=== PATIENT | female | born 1945 | race Caucasian/White ===

== ENCOUNTER 2024-02-24 14:23 | Inpatient (IN) | payer OTHER ==
[~2024-02-24 14:23] MED LIST: Iopamidol-370 76% 500 ML MDV (1 ML CHARGE) ONE
[2024-02-24] MEDS ORDERED: Cefepime 2 GM VIAL ONE (15:06)
[2024-02-24] MEDS ORDERED: Acetaminophen 650 MG Suppository ONE (15:06)
[2024-02-24] MEDS ORDERED: Sodium Chloride 0.9% 100 ML ONE (15:06)
[2024-02-24 15:13] LABS: INR-International Normal Ratio 1.8; Prothrombin Time 20.6 sec (12.0-14.7)
[2024-02-24 15:14] LABS: PTT 51.3 sec (22.9-36.1)
[2024-02-24 15:23] LABS: ALT (SGPT) 16 U/L (8-55); AST (SGOT) 59 U/L (5-34); Albumin 2.5 g/dL (3.4-4.8); Alkaline Phosphatase 67 U/L (40-110); Anion Gap 14 mmol/L (10-20); BUN (Urea Nitrogen) 13 mg/dL (9.8-20.1); Bilirubin, Total 3.4 mg/dL (0.2-1.2); Calc. Creatinine Clearance 0 mL/min (70-130); Calcium 8.1 mg/dL (7.8-10.44); Carbon Dioxide 20 mmol/L (23-31); Chloride 108 mmol/L (98-107); Estimated GFR 88; Globulin 5.1 g/dL (2.4-3.5); Glucose 141 mg/dL (83-110); Lipase 14 U/L (8-78); Magnesium 1.9 mg/dL (1.6-2.6); Potassium 3.7 mmol/L (3.5-5.1); Protein, Total 7.6 g/dL (5.8-8.1); Sodium 138 mmol/L (136-145)
[2024-02-24 15:30] LABS: Troponin I 0.025 ng/mL (< 0.028)
[2024-02-24 15:35] LABS: #Basophils Less than 0.03 10x3/uL (0.0-0.2); #Eosinophils Less than 0.03 10x3/uL (0.0-0.7); %Basophils 0.4 % (0.0-1.0); %Eosinophils 0.2 % (0.0-10.0); %Lymphocytes 44.9 % (21.0-51.0); %Monocytes 14.8 % (0.0-10.0); %Neutrophils 39.3 % (42.0-75.0); Hematocrit 29.1 % (36.0-47.0); Hemoglobin 10.4 g/dL (12.0-16.0); Mean Corpuscular HGB CONC 35.7 g/dL (32.0-36.0); Mean Corpuscular Hemoglobin 34.9 pg (27.0-31.0); Mean Corpuscular Volume 97.7 fL (78.0-98.0); Mean Platelet Volume 10.7 fL (7.4-10.4); Platelet Count 89 10x3/uL (130-400); RBC Distribution Width 16.7 % (11.5-14.5); Red Blood Cell (RBC) Count 2.98 mill/uL (4.20-5.40)
[2024-02-24 15:39] LABS: Anisocytosis SLIGHT = 6-15 cells (100X) (0-5/hpf); Macrocytosis SLIGHT = 6-15 cells (100X) (0-5/hpf)
[2024-02-24 15:41] LABS: Platelet Adequacy Comment Platelets Decreased
[2024-02-24] MEDS ORDERED: Ketorolac Tromethamine 30 MG (1 mL) VIAL ONE (16:33)
[2024-02-24 16:34] LABS: Bacteria/HPF None Seen HPF (None Seen); Bilirubin Negative (Negative); Blood, Urine Negative (Negative); CAUTI Indications for Culture Dysuria,urgency,freq; Clarity Clear (Clear); Glucose, Urine (Dipstick) Normal (Negative); Ketone, Urine Trace mg/dL (Negative); Leukocyte 75 Leu/uL (Negative); Nitrite Negative (Negative); Protein, Urine (Dipstick) 70 mg/dL (Neg-Trace); RBC/HPF None Seen HPF (0-3); Specific Gravity, Urine 1.028 (1.002-1.036); Squamous Epithelial 0-3 HPF (0-3); pH, Urine 6.5 (5.0-9.0)
[2024-02-24 16:41] LABS: Actual Bicarbonate (HCO3v) 21.6 mEq/L (22-28); Base Excess -2.6 mEq/L (-2.0 to +3.0); Calcium, Ionized (venous) 1.04 mmol/L (1.16-1.32); Chloride (VBG) 109 mmol/L (98-106); Hematocrit-VBG 29 % (36.0-47.0); Hemoglobin (Hb) 9.7 g/dL (11.7-16.1); Potassium (VBG) 3.37 mmol/L (3.70-5.30); Sodium 137 mmol/L (133-146); pH (venous) 7.408 (7.32-7.43)
[2024-02-24 16:45] LABS: Urine Culture Reflex Yes Yes
[2024-02-24] MEDS ORDERED: Acetaminophen 325 MG TAB PO PRN (17:21)
[2024-02-24] MEDS ORDERED: Acetaminophen 650 MG Suppository PR PRN (17:21)
[2024-02-24] MEDS: Vancomycin (BATCH) 1.75 GM in Premix 1 BAG IVPB ONE (18:55)
[2024-02-24 19:05] VITALS: BMI 26.0
[2024-02-24] MEDS: Famotidine/PF 20 mg/2ml Vial SLOW IVP SCH (20:54)
[2024-02-24] MEDS: Vancomycin HCl 750 MG in Sodium Chloride 0.9% 250 ML 250 ML IVPB SCH (20:54)
[2024-02-24] MEDS ORDERED: Vancomycin 1 GM in Sodium Chloride 0.9% 250 ML 250 ML IVPB SCH (21:00)
[2024-02-25] MEDS: Cefepime 1 GM in Sodium Chloride 0.9% 100 ML IVPB SCH (03:25)
[2024-02-25] MEDS: Magnesium 2 GM/50 ML(in water) 2 GM in Premix 1 BAG IVPB SCH (05:37)
[2024-02-25 06:30] LABS: Vancomycin, Random 23.9 ug/mL (See Comment)
[2024-02-25 06:32] LABS: #Basophils Less than 0.03 10x3/uL (0.0-0.2); #Eosinophils Less than 0.03 10x3/uL (0.0-0.7); %Basophils 0.5 % (0.0-1.0); %Eosinophils 0.2 % (0.0-10.0); %Lymphocytes 50.4 % (21.0-51.0); %Monocytes 12.9 % (0.0-10.0); %Neutrophils 35.8 % (42.0-75.0); Hematocrit 29.8 % (36.0-47.0); Hemoglobin 10.3 g/dL (12.0-16.0); Mean Corpuscular HGB CONC 34.6 g/dL (32.0-36.0); Mean Corpuscular Hemoglobin 35.3 pg (27.0-31.0); Mean Corpuscular Volume 102.1 fL (78.0-98.0); Mean Platelet Volume 11.9 fL (7.4-10.4); Platelet Count 80 10x3/uL (130-400); RBC Distribution Width 17.2 % (11.5-14.5); Red Blood Cell (RBC) Count 2.92 mill/uL (4.20-5.40)
[2024-02-25 06:33] LABS: ALT (SGPT) 14 U/L (8-55); AST (SGOT) 51 U/L (5-34); Albumin 2.2 g/dL (3.4-4.8); Alkaline Phosphatase 57 U/L (40-110); Anion Gap 9 mmol/L (10-20); BUN (Urea Nitrogen) 18 mg/dL (9.8-20.1); Calc. Creatinine Clearance 74 mL/min (70-130); Calcium 7.8 mg/dL (7.8-10.44); Carbon Dioxide 18 mmol/L (23-31); Chloride 113 mmol/L (98-107); Estimated GFR 88; Globulin 5.1 g/dL (2.4-3.5); Glucose 123 mg/dL (83-110); Potassium 3.4 mmol/L (3.5-5.1); Protein, Total 7.3 g/dL (5.8-8.1); Sodium 137 mmol/L (136-145)
[2024-02-25] MEDS: Enoxaparin 40 MG (0.4 mL) SYRINGE SC SCH (09:06)
[2024-02-25] MEDS: Furosemide 40 MG (4 mL) VIAL SLOW IVP SCH (09:06)
[2024-02-25] MEDS: FLU (Fluad Triv) TS24-25 (65UP)/MF59C/PF 45 MCG/0.5 ML Syringe IM ONE (09:07)
[2024-02-25] MEDS ORDERED: Polyethylene Glycol 3350 17 GM Packet PO PRN (12:42)
[2024-02-25] MEDS ORDERED: Fluticasone Propionate Nasal Spray 16 gm Bottle NASAL PRN ×2 (12:42→12:51)
[2024-02-25] MEDS ORDERED: Ipratropium/Albuterol 3 ML NEB NEB PRN ×2 (12:42→12:52)
[2024-02-25] MEDS ORDERED: Non-Formulary Item 1 EACH (Oxycodone Hcl/Acetaminophen [Oxycodone-Acetaminophen 10-325] 1 PO SCH (13:00)
[2024-02-25] MEDS: oxyCODONE/Acetaminophen 5 mg/325 mg Tablet PO SCH (13:30)
[2024-02-25] MEDS: Pregabalin 50 MG CAP PO SCH (14:58)
[2024-02-25] MEDS ORDERED: Non-Formulary Item 1 EACH (Pregabalin [Pregabalin] 100 MG Capsule) PO SCH (15:00)
[2024-02-25] MEDS: Lactulose 20 GM (30 mL) UDCUP PO SCH (18:55)
[2024-02-25] MEDS: Cyclobenzaprine 10 MG TAB PO SCH (20:05)
[2024-02-25] MEDS ORDERED: LACTULOSE 10 GM/15 ML PO SCH (21:00)
[2024-02-26 07:48] LABS: ALT (SGPT) 10 U/L (8-55); AST (SGOT) 39 U/L (5-34); Albumin 1.9 g/dL (3.4-4.8); Alkaline Phosphatase 44 U/L (40-110); Anion Gap 7 mmol/L (10-20); BUN (Urea Nitrogen) 19 mg/dL (9.8-20.1); Bilirubin, Total 2.1 mg/dL (0.2-1.2); Calc. Creatinine Clearance 81 mL/min (70-130); Calcium 7.7 mg/dL (7.8-10.44); Carbon Dioxide 22 mmol/L (23-31); Chloride 112 mmol/L (98-107); Estimated GFR 90; Globulin 4.1 g/dL (2.4-3.5); Glucose 87 mg/dL (83-110); Potassium 3.1 mmol/L (3.5-5.1); Sodium 138 mmol/L (136-145)
[2024-02-26 07:54] LABS: Hematocrit 23.8 % (36.0-47.0); Hemoglobin 8.4 g/dL (12.0-16.0); Mean Corpuscular HGB CONC 35.3 g/dL (32.0-36.0); Mean Corpuscular Hemoglobin 35.4 pg (27.0-31.0); Mean Corpuscular Volume 100.4 fL (78.0-98.0); Mean Platelet Volume 10.8 fL (7.4-10.4); Platelet Count 73 10x3/uL (130-400); RBC Distribution Width 17.2 % (11.5-14.5); Red Blood Cell (RBC) Count 2.37 mill/uL (4.20-5.40)
[2024-02-26] MEDS: Escitalopram Oxalate 10 mg Tablet PO SCH (08:48)
[2024-02-26] MEDS ORDERED: Electrolyte Replacement Protocol 1 EACH FS SCH (11:15)
[2024-02-26 11:21] LABS: Burr Cells SLIGHT = 2-5 cells HPF (0-1); Eosinophils 4 % (0-10); Large Platelets 10.4 % (0-5); Lymphocytes 20 % (21-51); Monocytes 10 % (0-10); Neutrophil 62 % (42-75); Ovalocytes SLIGHT = 2-5 cells HPF (0-1); Platelet Adequacy Comment Platelets Decreased; Polychromasia SLIGHT = 2-3 cells HPF (0-2); Reflex for Review?? YES; Smudge Cells 122.6 %; Target Cells SLIGHT = 2-5 cells HPF (0-1)
[2024-02-26] MEDS ORDERED: Electrolyte Replacement Protocol FS PRN (11:30)
[2024-02-26] MEDS: Potassium Chloride 20 MEQ TAB PO SCH (12:49)
[2024-02-26] MEDS: Doxycycline 100 MG in Sodium Chloride 0.9% 100 ML IVPB SCH (20:04)
[2024-02-27 05:49] LABS: Hematocrit 24.6 % (36.0-47.0); Hemoglobin 8.6 g/dL (12.0-16.0); Mean Corpuscular Hemoglobin 35.4 pg (27.0-31.0); Mean Corpuscular Volume 101.2 fL (78.0-98.0); Mean Platelet Volume 9.8 fL (7.4-10.4); Platelet Count 87 10x3/uL (130-400); RBC Distribution Width 17.1 % (11.5-14.5); Red Blood Cell (RBC) Count 2.43 mill/uL (4.20-5.40)
[2024-02-27 06:30] LABS: Anisocytosis SLIGHT = 6-15 cells HPF (0-5); Band 1 % (5-11); Eosinophils 6 % (0-10); Large Platelets 18.1 % (0-5); Lymphocytes 46 % (21-51); Macrocytosis SLIGHT = 6-15 cells HPF (0-5); Monocytes 11 % (0-10); Neutrophil 33 % (42-75); Platelet Adequacy Comment Platelets Decreased; Polychromasia SLIGHT = 2-3 cells HPF (0-2); Smudge Cells 173.5 %
[2024-02-27 06:37] LABS: ALT (SGPT) 11 U/L (8-55); AST (SGOT) 39 U/L (5-34); Albumin 1.9 g/dL (3.4-4.8); Alkaline Phosphatase 43 U/L (40-110); Anion Gap 8 mmol/L (10-20); BUN (Urea Nitrogen) 21 mg/dL (9.8-20.1); Bilirubin, Total 1.8 mg/dL (0.2-1.2); Calc. Creatinine Clearance 80 mL/min (70-130); Carbon Dioxide 22 mmol/L (23-31); Chloride 110 mmol/L (98-107); Estimated GFR 90; Globulin 4.3 g/dL (2.4-3.5); Glucose 85 mg/dL (83-110); Potassium 3.3 mmol/L (3.5-5.1); Protein, Total 6.2 g/dL (5.8-8.1); Sodium 137 mmol/L (136-145)
[2024-02-27] MEDS: Potassium Bicarbonate/Cit Ac 20 MEQ TAB PO SCH (09:37)
[2024-02-27 12:17] LABS: Metamyelocyte 2 % (0-0)
[2024-02-27 14:47] VITALS: BP 117/64; TEMP 98.2
== END 2024-02-27 15:50 | DRG 871 ==
LOC: ERS 14:23 → T4-B 17:25 → OBSVTOIN 17:25
PROVIDERS: ADMIT Internal Medicine; ATTEND Internal Medicine
DX: A41.9 Sepsis, unspecified organism (principal); J96.01 Acute respiratory failure with hypoxia; N39.0 Urinary tract infection, site not specified; M06.9 Rheumatoid arthritis, unspecified; I11.0 Hypertensive heart disease with heart failure; E78.5 Hyperlipidemia, unspecified; F32.A Depression, unspecified; Z66 Do not resuscitate; Z88.0 Allergy status to penicillin; Z88.8 Allergy status to other drugs, medicaments and biological substances; F41.9 Anxiety disorder, unspecified; K21.9 Gastro-esophageal reflux disease without esophagitis; Z98.890 Other specified postprocedural states; Z79.899 Other long term (current) drug therapy; D64.9 Anemia, unspecified
CPT/HCPCS: 36415; 70450; 71045; 71275; 80053; 80202; 81001; 82805; 83605; 83690; 83735; 83880; 84145; 84484; 85025; 85060; 85610; 85730; 87040; 87086; 87428; 93005; 96361; 96365; 96367; 96375; J0692; J1650; J1885; J1940; J3370; J3475; J3490; J7050

== ENCOUNTER 2024-02-27 17:31 | Inpatient (IN) | payer OTHER ==
[2024-02-27 19:10] LABS: Hematocrit 28.1 % (36.0-47.0); Hemoglobin 9.7 g/dL (12.0-16.0); Mean Corpuscular HGB CONC 34.5 g/dL (32.0-36.0); Mean Corpuscular Hemoglobin 34.9 pg (27.0-31.0); Mean Corpuscular Volume 101.1 fL (78.0-98.0); Mean Platelet Volume 9.8 fL (7.4-10.4); Platelet Count 105 10x3/uL (130-400); RBC Distribution Width 17.2 % (11.5-14.5); Red Blood Cell (RBC) Count 2.78 mill/uL (4.20-5.40)
[2024-02-27 19:20] LABS: ALT (SGPT) 13 U/L (8-55); AST (SGOT) 44 U/L (5-34); Albumin 2.2 g/dL (3.4-4.8); Alkaline Phosphatase 56 U/L (40-110); Anion Gap 11 mmol/L (10-20); BUN (Urea Nitrogen) 16 mg/dL (9.8-20.1); Bilirubin, Total 1.8 mg/dL (0.2-1.2); Calc. Creatinine Clearance 0 mL/min (70-130); Calcium 8.3 mg/dL (7.8-10.44); Carbon Dioxide 24 mmol/L (23-31); Chloride 105 mmol/L (98-107); Estimated GFR 88; Glucose 109 mg/dL (83-110); Potassium 3.4 mmol/L (3.5-5.1); Protein, Total 7.2 g/dL (5.8-8.1); Sodium 137 mmol/L (136-145)
[2024-02-27] MEDS ORDERED: Ondansetron PF 4 MG/2 ML Vial ONE (19:22)
[2024-02-27] MEDS ORDERED: Morphine 4 MG/ML VIAL ONE (19:22)
[2024-02-27 19:30] LABS: Anisocytosis MODERATE=16-30 cells HPF (0-5); Band 1 % (5-11); Eosinophils 2 % (0-10); Hypochromia SLIGHT = 6-15 cells HPF (0-5); Large Platelets 8.1 % (0-5); Lymphocytes 38 % (21-51); Macrocytosis MARKED = >30 cells HPF (0-5); Monocytes 10 % (0-10); Neutrophil 48 % (42-75); Platelet Adequacy Comment Platelets Decreased; Polychromasia SLIGHT = 2-3 cells HPF (0-2); RBC Morphology Within Normal Limits; Smudge Cells 47.5 %
[2024-02-27] MEDS ORDERED: Dextrose 50% Abboject 50 ML SYRINGE SLOW IVP PRN (20:24)
[2024-02-27] MEDS ORDERED: Dextrose 5% in Water 1,000 ML IV PRN (20:24)
[2024-02-27] MEDS ORDERED: Glucagon 1 MG/ML KIT IM PRN (20:24)
[2024-02-27] MEDS ORDERED: Ondansetron PF 4 MG/2 ML Vial IVP PRN (20:24)
[2024-02-27 23:15] VITALS: BMI 29.5
[2024-02-28] MEDS: Morphine 2 MG/ML VIAL SLOW IVP PRN (01:34)
[2024-02-28 06:16] LABS: #Basophils Less than 0.03 10x3/uL (0.0-0.2); %Basophils 0.4 % (0.0-1.0); %Eosinophils 2.3 % (0.0-10.0); %Lymphocytes 49.9 % (21.0-51.0); %Monocytes 11.5 % (0.0-10.0); %Neutrophils 35.7 % (42.0-75.0); Hematocrit 27.1 % (36.0-47.0); Hemoglobin 9.3 g/dL (12.0-16.0); Mean Corpuscular HGB CONC 34.3 g/dL (32.0-36.0); Mean Corpuscular Hemoglobin 34.8 pg (27.0-31.0); Mean Corpuscular Volume 101.5 fL (78.0-98.0); Mean Platelet Volume 11.2 fL (7.4-10.4); Platelet Count 81 10x3/uL (130-400); Red Blood Cell (RBC) Count 2.67 mill/uL (4.20-5.40)
[2024-02-28 06:20] LABS: Anion Gap 11 mmol/L (10-20); BUN (Urea Nitrogen) 16 mg/dL (9.8-20.1); Calc. Creatinine Clearance 81 mL/min (70-130); Calcium 8.1 mg/dL (7.8-10.44); Carbon Dioxide 23 mmol/L (23-31); Chloride 108 mmol/L (98-107); Estimated GFR 91; Glucose 112 mg/dL (83-110); Potassium 4.2 mmol/L (3.5-5.1); Sodium 138 mmol/L (136-145)
[2024-02-28] MEDS: Potassium Chloride 10 MEQ in Premix 1 BAG IVPB SCH (06:55)
[2024-02-28] MEDS ORDERED: Clindamycin/D5W 900 MG in Premix 1 BAG IVPB SCH (08:30)
[2024-02-28] MEDS ORDERED: PROPOFOL 20 ML ONE (10:53)
[2024-02-28] MEDS ORDERED: Clindamycin/D5W 900 mg/50 ml Premix Bag ONE (10:54)
[2024-02-28] MEDS ORDERED: Lidocaine 1% PF 5 ML VIAL ONE (10:54)
[2024-02-28] MEDS ORDERED: Rocuronium Bromide 10 MG/ML (10ML VIAL) ONE (10:54)
[2024-02-28] MEDS ORDERED: Ondansetron PF 4 MG/2 ML Vial ONE (10:54)
[2024-02-28] MEDS ORDERED: SUGAMMADEX SODIUM 200 MG/2 ML VIAL ONE (12:01)
[2024-02-28] MEDS ORDERED: Promethazine HCl 25 MG/ML VIAL IM PRN (12:32)
[2024-02-28] MEDS ORDERED: Dexamethasone 4 mg/ml Vial ONE (12:36)
[2024-02-28] MEDS ORDERED: fentaNYL 50 mcg/mL 1 mL Vial ONE (12:40)
[2024-02-28] MEDS: Dexamethasone 4 MG in Sodium Chloride 0.9% 50 ML IVPB SCH ×2 (14:23→15:00)
[2024-02-28] MEDS: traMADol HCl 50 MG TAB PO PRN (16:48)
[2024-02-28] MEDS: HYDROcodone/Acetaminophen 5/325 mg Tablet PO PRN (18:20)
[2024-02-28] MEDS: Clindamycin/D5W 900 MG in Premix 1 BAG IVPB SCH (21:12)
[2024-02-29 10:13] LABS: ALT (SGPT) 11 U/L (8-55); AST (SGOT) 31 U/L (5-34); Albumin 2.2 g/dL (3.4-4.8); Alkaline Phosphatase 47 U/L (40-110); Anion Gap 14 mmol/L (10-20); BUN (Urea Nitrogen) 32 mg/dL (9.8-20.1); Bilirubin, Total 2.6 mg/dL (0.2-1.2); Calc. Creatinine Clearance 72 mL/min (70-130); Calcium 8.2 mg/dL (7.8-10.44); Carbon Dioxide 19 mmol/L (23-31); Chloride 109 mmol/L (98-107); Estimated GFR 88; Globulin 4.7 g/dL (2.4-3.5); Glucose 156 mg/dL (83-110); Potassium 4.7 mmol/L (3.5-5.1); Protein, Total 6.9 g/dL (5.8-8.1); Sodium 137 mmol/L (136-145)
[2024-02-29 10:14] LABS: #Basophils Less than 0.03 10x3/uL (0.0-0.2); #Eosinophils Less than 0.03 10x3/uL (0.0-0.7); %Basophils 0.1 % (0.0-1.0); %Eosinophils 1.4 % (0.0-10.0); %Lymphocytes 37.5 % (21.0-51.0); %Monocytes 10.4 % (0.0-10.0); %Neutrophils 51.6 % (42.0-75.0); Hematocrit 21.8 % (36.0-47.0); Hemoglobin 7.5 g/dL (12.0-16.0); Mean Corpuscular HGB CONC 34.2 g/dL (32.0-36.0); Mean Corpuscular Hemoglobin 35.4 pg (27.0-31.0); Mean Corpuscular Volume 103.3 fL (78.0-98.0); Mean Platelet Volume 11.4 fL (7.4-10.4); Platelet Count 124 10x3/uL (130-400); RBC Distribution Width 17.2 % (11.5-14.5); Red Blood Cell (RBC) Count 2.12 mill/uL (4.20-5.40)
[2024-02-29] MEDS ORDERED: Enoxaparin 40 MG (0.4 mL) SYRINGE SC SCH (21:00)
[2024-02-29] MEDS: Enoxaparin 30 MG (0.3 mL) SYRINGE SC SCH (21:05)
[2024-03-01 06:04] LABS: Hematocrit 18.3 % (36.0-47.0); Hemoglobin 6.3 g/dL (12.0-16.0); Mean Corpuscular HGB CONC 34.4 g/dL (32.0-36.0); Mean Corpuscular Hemoglobin 34.6 pg (27.0-31.0); Mean Corpuscular Volume 100.5 fL (78.0-98.0); Mean Platelet Volume 11.4 fL (7.4-10.4); Platelet Count 162 10x3/uL (130-400); RBC Distribution Width 17.7 % (11.5-14.5); Red Blood Cell (RBC) Count 1.82 mill/uL (4.20-5.40)
[2024-03-01 06:41] LABS: Anisocytosis MODERATE=16-30 cells HPF (0-5); Band 7 % (5-11); Hypochromia SLIGHT = 6-15 cells HPF (0-5); Lymphocytes 9 % (21-51); Macrocytosis SLIGHT = 6-15 cells HPF (0-5); Monocytes 3 % (0-10); Neutrophil 81 % (42-75); Platelet Adequacy Comment Platelets Normal; Polychromasia SLIGHT = 2-3 cells HPF (0-2); Smudge Cells 47.5 %
[2024-03-01 08:21] LABS: ALT (SGPT) 12 U/L (8-55); AST (SGOT) 41 U/L (5-34); Albumin 2.2 g/dL (3.4-4.8); Alkaline Phosphatase 54 U/L (40-110); Anion Gap 13 mmol/L (10-20); BUN (Urea Nitrogen) 39 mg/dL (9.8-20.1); Bilirubin, Total 2.4 mg/dL (0.2-1.2); Calc. Creatinine Clearance 62 mL/min (70-130); Carbon Dioxide 21 mmol/L (23-31); Chloride 106 mmol/L (98-107); Estimated GFR 75; Globulin 4.6 g/dL (2.4-3.5); Glucose 144 mg/dL (83-110); Potassium 4.5 mmol/L (3.5-5.1); Protein, Total 6.8 g/dL (5.8-8.1); Sodium 135 mmol/L (136-145)
[2024-03-01] MEDS: Acetaminophen 325 MG TAB PO PRN (09:49)
[2024-03-01 16:58] LABS: Hematocrit 19.2 % (36.0-47.0); Hemoglobin 6.9 g/dL (12.0-16.0)
[2024-03-01] MEDS: Melatonin 3 MG TAB PO PRN (21:04)
[2024-03-02 02:52] LABS: Hematocrit 20.5 % (36.0-47.0); Hemoglobin 7.2 g/dL (12.0-16.0)
[2024-03-02 02:59] LABS: #Basophils Less than 0.03 10x3/uL (0.0-0.2); %Basophils 0.2 % (0.0-1.0); %Eosinophils 0.6 % (0.0-10.0); %Lymphocytes 45.4 % (21.0-51.0); %Monocytes 11.1 % (0.0-10.0); Hematocrit 20.7 % (36.0-47.0); Hemoglobin 7.1 g/dL (12.0-16.0); Mean Corpuscular HGB CONC 34.3 g/dL (32.0-36.0); Mean Corpuscular Hemoglobin 33.2 pg (27.0-31.0); Mean Corpuscular Volume 96.7 fL (78.0-98.0); Mean Platelet Volume 10.6 fL (7.4-10.4); Platelet Count 87 10x3/uL (130-400); RBC Distribution Width 18.2 % (11.5-14.5); Red Blood Cell (RBC) Count 2.14 mill/uL (4.20-5.40)
[2024-03-02 03:21] LABS: ALT (SGPT) 14 U/L (8-55); AST (SGOT) 26 U/L (5-34); Albumin 2.3 g/dL (3.4-4.8); Alkaline Phosphatase 44 U/L (40-110); Anion Gap 12 mmol/L (10-20); BUN (Urea Nitrogen) 23 mg/dL (9.8-20.1); Bilirubin, Total 2.4 mg/dL (0.2-1.2); Calc. Creatinine Clearance 85 mL/min (70-130); Calcium 7.8 mg/dL (7.8-10.44); Carbon Dioxide 22 mmol/L (23-31); Chloride 108 mmol/L (98-107); Estimated GFR 92; Globulin 3.7 g/dL (2.4-3.5); Glucose 147 mg/dL (83-110); Potassium 3.5 mmol/L (3.5-5.1); Sodium 138 mmol/L (136-145)
[2024-03-02] MEDS: Senokot S 8.6-50 MG TAB PO SCH (09:54)
[2024-03-02] MEDS: Polyethylene Glycol 3350 17 GM Packet PO SCH (09:54)
[2024-03-02] MEDS ORDERED: traMADol HCl 50 MG TAB PO PRN (10:26)
[2024-03-02 12:14] LABS: Hematocrit 26.6 % (36.0-47.0); Hemoglobin 9.5 g/dL (12.0-16.0)
[2024-03-02] MEDS: traMADol HCl 50 MG TAB PO SCH (12:33)
[2024-03-02 16:08] VITALS: BP 154/69; TEMP 97.7
[2024-03-02] MEDS ORDERED: Ferrous Sulfate 325 MG TAB PO SCH (17:00)
[2024-03-02] MEDS ORDERED: Ascorbic Acid 500 mg Chewable Tablet PO SCH (21:00)
== END 2024-03-02 14:30 | disposition home or self-care (01) | DRG 522 ==
LOC: ERS 17:31 → SURG A 20:27
PROVIDERS: ADMIT Surgery; ATTEND Surgery
PROC: 0SRS0JZ Replacement of Left Hip Joint, Femoral Surface with Synthetic Substitute, Open Approach (ICD-10-PCS; principal; 2024-02-28)
PROC: 0PSJXZZ Reposition Left Radius, External Approach (ICD-10-PCS; 2024-02-28)
PROC: 30233N1 Transfusion of Nonautologous Red Blood Cells into Peripheral Vein, Percutaneous Approach (ICD-10-PCS; 2024-03-01)
PROC: 30233K1 Transfusion of Nonautologous Frozen Plasma into Peripheral Vein, Percutaneous Approach (ICD-10-PCS; 2024-03-01)
DX: S72.012A Unspecified intracapsular fracture of left femur, initial encounter for closed fracture (principal); S52.502A Unspecified fracture of the lower end of left radius, initial encounter for closed fracture; D62 Acute posthemorrhagic anemia; W18.30XA Fall on same level, unspecified, initial encounter; Z79.899 Other long term (current) drug therapy; I10 Essential (primary) hypertension; M06.9 Rheumatoid arthritis, unspecified; K21.9 Gastro-esophageal reflux disease without esophagitis; E78.5 Hyperlipidemia, unspecified; F32.A Depression, unspecified; Z88.0 Allergy status to penicillin; Z66 Do not resuscitate
CPT/HCPCS: 29125; 36415; 36430; 71045; 72170; 76705; 80048; 80053; 82248; 85025; 86850; 86900; 86901; 93005; 96374; C1713; C1776; G0390; J1100; J1650; J2272; J2405; J2704; J3010; J3480; J3490; P9016; P9059